=== PATIENT | female | born 1945 | race Caucasian/White ===

== ENCOUNTER 2017-01-12 08:44 | Inpatient (IN) | payer MEDICARE, BC ==
[~2017-01-12] VITALS: Ht 174 cm; Wt 71.1 kg
[2017-03-06] VITALS (12 sets, daily range): BP systolic 77–140; BP diastolic 45–93; PULSE 59–78; TEMP 96.4–98.5
[2017-03-06] MEDS ORDERED: CLARITIN 1010 MG/TAB PO (06:34)
[2017-03-06] MEDS ORDERED: ESTRACE2 MG PO (06:34)
[2017-03-06] MEDS ORDERED: NATURAL E400 IU PO (06:35)
[2017-03-06] MEDS ORDERED: FISH OIL 500 M1 EAC1 PO (06:35)
[2017-03-06] MEDS ORDERED: VITAMIN B COMPL1 SGL PO (06:36)
[2017-03-07 01:29] VITALS: BP 99/50; PULSE 59; TEMP 98.7
[2017-03-07 06:00] VITALS: BP 111/47; PULSE 56; TEMP 98.3
[2017-03-07 07:34] LABS: BASO % 0.4 % (0.0-2.0); EOS # 0.1 (0.0-0.7); EOS % 0.9 % (0-4.0); GRAN # 4.9 (1.4-6.5); GRAN % 70.1 % (42.2-75.2); HEMATOCRIT 37.4 % (37.0-47.0); HEMOGLOBIN 12.5 g/dl (12.5-16.0); LYMPH # 1.4 (1.2-3.4); LYMPH % 20.5 % (20.0-51.0); MEAN CELL VOLUME 98 fl (80.0-100.0); MEAN CORPUSCULAR HEMOGLOBIN 33 pg (27.0-31.0); MEAN CORPUSCULAR HGB CONC 33 g/dl (33.0-37.0); MEAN PLATELET VOLUME 10.7 fl (7.4-10.4); MONO # 0.5 (0.1-0.6); MONO % 7.7 % (1.7-9.3); PLATELET COUNT 148 K/mm3 (130-400); RED BLOOD COUNT 3.82 M/mm3 (4.10-5.30)
[2017-03-07 07:47] LABS: CALCIUM 7.5 mg/dL (8.4-10.2); CREATININE, serum 0.82 mg/dL (0.52-1.25); POTASSIUM 3.7 mmol/L (3.4-5.0)
[2017-03-07 09:54] VITALS: BP 108/58; PULSE 65; TEMP 98.2
[2017-03-07 14:19] VITALS: BP 152/58; PULSE 68; TEMP 98.1
== END 2017-03-07 17:30 | disposition home or self-care (01) | DRG 748 ==
LOC: INPTSU 03-06 05:31 → SURG 03-06 07:30 → PEDS 03-06 07:30 → SURG 03-06 12:00
PROVIDERS: Urology
PROC: 8E0W4CZ Robotic Assisted Procedure of Trunk Region, Percutaneous Endoscopic Approach (ICD-10-PCS; 2017-03-06)
PROC: 0UUG4JZ Supplement Vagina with Synthetic Substitute, Percutaneous Endoscopic Approach (ICD-10-PCS; principal; 2017-03-06 07:30)
DX: N99.3 Prolapse of vaginal vault after hysterectomy (principal); F17.210 Nicotine dependence, cigarettes, uncomplicated
CPT/HCPCS: A4315; A9284; C1713; C1781; J0360; J0690; J1170; J1644; J1885; J2270; J2405; J2704; J3010; J7120